=== PATIENT | male | born 1990 | race Caucasian/White ===

== ENCOUNTER 2018-11-14 09:52 | Emergency (ER) | payer SELFPAY ==
[~2018-11-14] VITALS: Ht 175.3 cm; Wt 61.2 kg
--- NOTE | 2018-11-14 10:27 | ED Upper Extremity ---
General Chief Complaint: Upper Extremity Stated Complaint: LT SHOULDER INJ Source: patient Exam Limitations: no limitations History of Present Illness Date Seen by Provider: Nov 14, 2018 Time Seen by Provider: 10:15 Initial Comments Patient presents to ER by private conveyance with chief complaint that one week ago he was in [place] and had some kind of an accident that resulted in his left shoulder dislocation. He's had a dislocated in the past. Went to the hospital and they put it back in and gave him a sling to wear for couple days and then give him a follow-up instructions. He's been using ibuprofen but his pain is still been quite significant. He said he did take x-rays of the time. He had a surgery on his left shoulder in the past by a surgeon and [place] but does not follow any more that doctor. He rates the pain at moderate. He denies any numbness tingling or weakness in his left arm; just pain in the shoulder anteriorly. Allergies and Home Medications Allergies Coded Allergies: Penicillins (Verified Allergy, Unknown, hives, 11/14/18) Patient Home Medication List Home Medication List Reviewed: Yes Review of Systems Constitutional: No chills, No fever EENTM: No hearing loss, No ear pain Respiratory: No cough, No phlegm Cardiovascular: No chest pain, No Hx of Intervention Gastrointestinal: No abdominal pain, No constipation, No diarrhea Musculoskeletal: see HPI; No back pain; joint pain Past Etxkowu-Lclymt-Ctaqhz Hx Patient Social History Alcohol Use: Denies Use Recreational Drug Use: No Smoking Status: Never a Smoker Recent Foreign Travel: No Physical Exam Vital Signs Capillary Refill : Height, Weight, BMI Height: '" Weight: lbs. oz. kg; BMI Method: General Appearance: WD/WN, mild distress HEENT: PERRL/EOMI, pharynx normal Neck: non-tender, full range of motion, normal inspection Cardiovascular: normal peripheral pulses, regular rate, rhythm Respiratory: chest non-tender, no respiratory distress, no accessory muscle use Back: normal inspection, no vertebral tenderness Shoulder: normal ROM, bone tenderness (acromioclavicular joint and glenohumeral joint tender to palpation and movement); No deformity; soft tissue tenderness (anterior left shoulder), swelling (mild joint effusion left glenohumeral joint) Elbow/Forearm: normal inspection, non-tender, no evidence of injury, normal ROM , Left Neurologic/Psychiatric: alert, normal mood/affect, oriented x 3 Skin: normal color, warm/dry Progress/Results/Core Measures Results/Orders My Orders Orders - ALEXANDRA SAGE Acetaminophen Tablet (Tylenol Tablet) (11/14/18 10:30) Shoulder 3 View Left (11/14/18 10:22) Medications Given in ED Current Medications Medications Dose Ordered Sig/Brandon Route Start Time Stop Time Status Last Admin Dose Admin Acetaminophen 1,000 mg ONCE ONCE PO 11/14/18 10:30 11/14/18 10:31 DC 11/14/18 10:28 1,000 MG Progress Progress Note : Time: 10:27 Progress Note Patient ate some aftercare dislocated left shoulder. We'll give him referral to orthopedic surgery. He has some mild joint effusion so we'll just repeat an x- ray and give him some Tylenol. Does not clinically appear to be dislocated. Diagnostic Imaging Diagonstic Imaging: Xray Plain Films/CT/US/NM/MRI: other (left shoulder 3 views) Comments [facility] [place] [place] NAME: KATHRIN GOMES [facility] REC#: [id number] PT STATUS: REG ER : 1990 PHYSICIAN: ALEXANDRA SAGE MD ADMIT DATE: 11/14/18/ER FS Draft Date of Exam:11/14/18 SHOULDER 3 VIEW LEFT INDICATION: Shoulder pain and injury. Time of exam: 10:15 AM Three views of the left shoulder were obtained. Glenohumeral and acromioclavicular alignment are normal. Acromiohumeral space is normal. No fracture or dislocation is seen. Soft tissue calcification in the left axilla is noted, indeterminate. IMPRESSION: No acute bony abnormality is detected. Dictated on workstation # [id number] Dict: 11/14/18 1038 Trans: 11/14/18 1047 REESE [id number] Interpreted by: ESTHER STERLING MD Electronically signed by: Reviewed: Reviewed by Me Departure Impression Primary Impression: Left anterior shoulder pain Additional Impression: History of closed shoulder dislocation Disposition: HOME, SELF-CARE Condition: Stable Departure-Patient Inst. Decision time for Depature: 11:04 Referrals: YANNI MARTÍNEZ,LOCAL PHYSICIAN (PCP) Primary Care Physician Patient Instructions: How to Use a Shoulder Sling, Shoulder Exercises With Weights Add. Discharge Instructions: Wear the sling for the next week. Do pendulum exercises several times a day to keep your shoulder from freezing up. Continue to use Tylenol 1000 mg every 8 hours and/or ibuprofen 800 mg every 8 hours as necessary for the pain. If you're still having breakthrough pain you can use the tramadol 1 tablet every 6 hours as needed. Use heat and topical creams such as icy hot or Capsaicin oil. Plan to follow up with Dr. Martínez at [facility] by calling for an appointment. All discharge instructions reviewed with patient and/or family. Voiced understanding. Scripts Tramadol HCl (Tramadol HCl) 50 Mg Tablet 50 MG PO Q6H PRN for PAIN, #15 TAB 0 Refills Prov: ALEXANDRA SAGE 11/14/18 Work/School Note: Work Release Form Date Seen in the Emergency Department: Nov 14, 2018 Return to Work: Nov 15, 2018 Restrictions: Need Release from Doctor Other Restrictions Listed Below: Sling left arm and no lifting more than 5 pounds until 11/21/18. Copy Copies To 1: YANNI MARTÍNEZ TITUS J Nov 14, 2018 10:27
--- OUTSIDE RECORDS SUMMARY | 2018-11-14 10:27 | XMS REPORT ---
Author Author LESIA SIMMONS [address] Address [address] [place] [address] Care Team Providers Care Manager Beverage Name Role Phone LESIA SIMMONS Unavailable PROBLEMS Type Condition ICD9-CM Code DRB36-OB Code Onset Dates Condition Status SNOMED Code Problem Dental examination V72.2 Active 64791937 ALLERGIES Substance Reaction Event Type Date Status Amoxicillin Unknown Drug Allergy Jan, Active Penicillins Unknown Non Drug Allergy Jan, Active ENCOUNTERS Encounter Location Date Diagnosis [facility] [address] [place] [phone] Feb, [facility] [address] [place] [phone] Jan, Dental examination Z01.20 [facility] [address] [place] [phone] Nov, [place] [id number] [place] [phone] Nov, [place] [id number] [place] [phone] Nov, [id number] [place] [phone] Jan, [place] [id number] [place] [phone] Jan, IMMUNIZATIONS No Known Immunizations SOCIAL HISTORY Never Assessed REASON FOR VISIT RONY PLAN OF CARE Activity Details Follow Up 45 min TE #17 Reason: VITAL SIGNS Blood pressure systolic 121 mmHg 2018-02-20 Blood pressure diastolic 74 mmHg 2018-02-20 MEDICATIONS Medication Instructions Dosage Frequency Start Date End Date Duration Status Vicodin 5-325 Mg Take 1 Tablet by Oral route every 4-6 hours as needed for pain. Jan, Not-Taking [place] 7.5-325 MG Orally every 6 hrs 1 tablet as needed 6h Jan, Active Clindamycin HCl 150 MG Orally every 6 hrs 2 capsules 6h Feb, 07 days Active Magic Mouthwash Apply medicated swab to sore areas of the mouth to numb the pain As needed Dip cotton swab into medication Jan, As needed Active RESULTS No Results PROCEDURES Procedure Date Ordered Result Body Site LTD ORAL EVALUATION - PROBLEM FOCUS February 20, 2018 PANORAMIC FILM SEE ALSO CODE 61132 February 20, 2018 INSTRUCTIONS MEDICATIONS ADMINISTERED No Known Medications
--- OUTSIDE RECORDS SUMMARY | 2018-11-14 10:27 | XMS REPORT ---
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 Name Role Phone LESIA SIMMONS Unavailable PROBLEMS Type Condition ICD9-CM Code USD24-DD Code Onset Dates Condition Status SNOMED Code Problem Dental examination V72.2 Active [id number] ALLERGIES No Information ENCOUNTERS Encounter Location Date Diagnosis [address] [phone] Feb, [address] [phone] Jan, Dental examination Z01.[address] [phone] Nov, [place] [id number] [place] [id number] [place] [phone] Nov, [place] [address] [place] [id number] [place] [phone] Nov, [place] [address] [place] [id number] [place] [phone] Jan, [facility] [id number] [place] [phone] Jan, IMMUNIZATIONS No Known Immunizations SOCIAL HISTORY Never Assessed REASON FOR VISIT Triage PLAN OF CARE VITAL SIGNS MEDICATIONS Unknown Medications RESULTS No Results PROCEDURES No Known procedures INSTRUCTIONS MEDICATIONS ADMINISTERED No Known Medications
--- OUTSIDE RECORDS SUMMARY | 2018-11-14 10:27 | XMS REPORT | Continuity of Care Document ---
Author Author [facility] Address Unknown Phone Unavailable Allergies Active Description Code Type Severity Reaction Onset Reported/Identified Relationship to Patient Clinical Status Yes Amoxicillin Drug Allergy N/A N/A 01/28/2014 Yes Penicillins Drug Allergy N/A N/A 01/28/2014 Medications There is no data. Problems Date Dx Coded Attending Type Code Diagnosis Diagnosed By 01/28/2014 AMADA PEGUERO DDS V72.2 DENTAL EXAMINATION Procedures Code Description Per[place] By [place]formed On D0140 LIMIT ORAL EVAL PROBLM FOCUS 01/28/2014 D0220 INTRAORAL PERIAPICAL FIRST F 01/28/2014 D7140 EXTRACTION ERUPTED TOOTH/ EXR 01/28/2014 Results There is no data. Encounters ACCT No. Visit Date/Time Discharge Status Pt. Type Provider Facility Loc./Unit Complaint [id number] 01/28/2014 09:08:00 01/28/2014 23:59:59 CLS Outpatient AMADA PEGUERO DDS [id number] 11/14/2018 09:30:00 ACT [facility]
[2018-11-14] MEDS ORDERED: ACETAMINOPHEN 500 MG TAB (TYLENOL) PO ONE (10:30)
--- NOTE | 2018-11-14 10:48 | Diagnostic Imaging Report ---
INDICATION: Shoulder pain and injury. Time of exam: 10:15 AM Three views of the left shoulder were obtained. Glenohumeral and acromioclavicular alignment are normal. Acromiohumeral space is normal. No fracture or dislocation is seen. Soft tissue calcification in the left axilla is noted, indeterminate. IMPRESSION: No acute bony abnormality is detected. Dictated by: Dictated on workstation # [id number]
[2018-11-14] MEDS ORDERED: TRAM50TA2 PO (11:07)
[2018-11-14 11:30] VITALS: BP 115/67
== END 2018-11-14 11:36 | disposition home or self-care (01) ==
LOC: ER FS 09:57
DX: M25.512 Pain in left shoulder (principal); Z87.828 Personal history of other (healed) physical injury and trauma; Z88.0 Allergy status to penicillin; Z98.890 Other specified postprocedural states
CPT/HCPCS: 73030

== ENCOUNTER 2019-05-13 05:48 | Emergency (ER) | payer OTHER ==
[~2019-05-13] VITALS: Ht 172 cm; Wt 65.0 kg
[~2019-05-13 05:48] MED LIST: TRAM50TA2 PO
[2019-05-13] MEDS ORDERED: LIDOCAINE/EPI 2% 1:100,00 (XYLOCAINE) 20 ML VIAL ONE (05:50)
[2019-05-13] MEDS ORDERED: LIDOCAINE/EPI 2% 1:100,00 (XYLOCAINE) 20 ML VIAL INJ ONE (06:15)
--- NOTE | 2019-05-13 06:20 | ED Upper Extremity ---
General Chief Complaint: Laceration Stated Complaint: LEFT ARM CUT Nursing Triage Note: PT PRESENTS WITH A LACERATION TO LEFT WRIST FROM GLASS AT WORK Nursing Sepsis Screen: No Definite Risk History of Present Illness Date Seen by Provider: May 13, 2019 Time Seen by Provider: 06:16 Initial Comments Patient presents emergency department for evaluation of a left forearm laceration sustained at work this morning when a piece of glass was dropped and cut his left distal volar forearm. He denies any distal weakness numbness or tingling and he says that his tetanus is up-to-date. Allergies and Home Medications Allergies Coded Allergies: Penicillins (Verified Allergy, Unknown, hives, 11/14/18) Home Medications Tramadol HCl 50 Mg Tablet, 50 MG PO Q6H PRN for PAIN Prescribed by: ALEXANDRA SAGE on 11/14/18 1100 Patient Home Medication List Home Medication List Reviewed: Yes Review of Systems Constitutional: no symptoms reported Skin: other (laceration) All Other Systems Reviewed Negative Unless Noted: Yes Past Jgcjgld-Dsqdkk-Itzfgi Hx Patient Social History Alcohol Use: Denies Use Recreational Drug Use: No Recent Foreign Travel: No Contact w/Someone Who Travel: No Recent Infectious Disease Expo: No Physical Abuse: No Sexual Abuse: No Mistreated: No Past Medical History Surgeries: Yes (left shoulder surgery) Orthopedic Physical Exam Vital Signs Vital Signs - First Documented 05/13/19 05:58 Temp 36.4 Pulse 100 Resp 18 B/P (MAP) 123/58 (79) Pulse Ox 98 O2 Delivery Room Air Capillary Refill : Less Than 3 Seconds Height, Weight, BMI Height: 5'9.00" Weight: 135lbs. oz. 61.115407ip; 21.00 BMI Method:Stated General Appearance: WD/WN, no apparent distress Elbow/Forearm: Left (intact flexion and extension of all fingers and wrist with normal capillary refill and strength. ) Neurologic/Psychiatric: no motor/sensory deficits, other (approximate 5 cm horizontal laceration that has some active oozing a blunt no obvious tendon laceration or foreign body visualized.) Procedures/Interventions Wound Location: Upper Extremities Wound Length (cm): 5 Wound's Depth, Shape: linear, sub Q Wound Explored: clean Irrigated w/ Saline (ccs): 1000 Betadine Prep?: Yes Anesthesia: Lidocaine w/ Epi Volume Anesthetic (ccs): 5 Wound Debrided: minimal Suture: Monocryl Suture Size: 4-0 Number of Sutures: 7 Layer Closure?: 1 Sterile Dressing Applied?: Yes Progress/Results/Core Measures Results/Orders My Orders Orders - LESIA HOWARD DO Lidocaine/Epi 2% 1:100,000 (Xylocaine/Ep (05/13/19 05:50) Lidocaine/Epi 2% 1:100,000 (Xylocaine/Ep (05/13/19 06:15) Vital Signs/I&O 05/13/19 05:58 Temp 36.4 Pulse 100 Resp 18 B/P (MAP) 123/58 (79) Pulse Ox 98 O2 Delivery Room Air Blood Pressure Mean: 79 Progress Progress Note : Progress Note Patient with foreign laceration that was closed with no difficulty and he was neurovascularly intact pre-and post procedure. He was told to have the sutures taken out in 1 week and come back sooner with worsening pain redness swelling drainage or other general concerns. Patient aware and agreeable with plan and verbalized understanding of the above instructions. Departure Impression Primary Impression: Laceration of left forearm Disposition: 01 HOME, SELF-CARE Condition: Stable Departure-Patient Inst. Referrals: NO,LOCAL PHYSICIAN (PCP/Family) Primary Care Physician Patient Instructions: Laceration Repair With Stitches (DC) LESIA HOWARD DO May 13, 2019 06:20
[2019-05-13 06:26] VITALS: BP 123/58
== END 2019-05-13 06:26 | disposition home or self-care (01) ==
LOC: EDUNIT# 05:48 → ER FS 05:50
DX: S51.812A Laceration without foreign body of left forearm, initial encounter (principal); Z88.0 Allergy status to penicillin; W25.XXXA Contact with sharp glass, initial encounter
CPT/HCPCS: 12002

== ENCOUNTER → 2021-11-24 | Outpatient (CLI) | payer MEDICAID ==
[~2021-11-24] MED LIST changes: -TRAM50TA2 PO; +TRM50T PO
[2021-11-24 10:38] VITALS: BP 120/70
--- NOTE | 2021-11-24 13:33 | Cardiology Stress Test Report ---
Stress Test Report Date of Procedure/Referring: Date of Procedure: Nov 24, 2021 PCP Gokul Rivas MD Admitting Physician No,Local Physician Indications: Palpitation Baseline Heart Rate: 66 Baseline Blood Pressure: Blood Pressure Systolic: 120 Blood Pressure Diastolic: 70 Baseline EKG: Baseline EKG: NSR Summary/Conclusion: Summary: In summary, the patient started exercising with a baseline heart rate, blood pressure and EKG mentioned above Patient was able to exercise for a total of 11minutes on Ganesh protocol, METs 12.1 Maximum heart rate 173 Maximum blood pressure 156/89 Stress EKG, Minimal nondiagnostic changes Recovery EKG , Return to baseline Conclusion: 1. Good exercise tolerance for a total of 11 minutes on Ganesh protocol, 12.1 METs, achieving 92 percent of maximum expected heart rate 2. Minimal nondiagnostic EKG changes with exercise returned to baseline during recovery 3. No arrhythmia was noted GOKUL RIVAS MD Nov 24, 2021 13:33
== END ==
LOC: CARD 10:30
PROVIDERS: ATTEND Internal Medicine Cardiovascular Disease
DX: R07.9 Chest pain, unspecified (principal); R00.2 Palpitations
CPT/HCPCS: 93017

== ENCOUNTER → 2021-12-02 | Outpatient (CLI) | payer MEDICAID | LOC: CARDFS 13:53 | PROVIDERS: ATTEND Internal Medicine Cardiovascular Disease | DX: I10 Essential (primary) hypertension (principal); I25.10 Atherosclerotic heart disease of native coronary artery without angina pectoris | CPT/HCPCS: 93306 ==